=== PATIENT | female | born 1975 | race Caucasian/White ===

== ENCOUNTER → 2016-10-12 09:02 | Outpatient (CLI) | payer MEDICAID ==
[2012-06-03 16:57] VITALS: BMI 25.0
--- NOTE | ~2016-10-12 | EMG ---
PATIENT:SHANTE PACHECO DATE OF SERVICE: 10/12/16 MEDICAL RECORD: [id number] DATE OF : 77 LOCATION: [facility] ADMISSION DATE: REFERRING PHYSICIAN: CARMEN CUEVA DO INTERPRETING PHYSICIAN: JOSSELYN RM MD DATE OF SERVICE: 10/13/2016 Referred as an outpatient by Dr. Cueva. DATE OF EXAMINATION: 10/12/2016. ELECTROMYOGRAPHIC DATA: Electromyographic examination is limited to both upper extremities. In the right upper extremity, right median motor stimulation elicits a compound motor action potential with a distal latency of 2.6 milliseconds, peak amplitude of 7 millivolts, and calculated conduction velocity of 57 meters per second. Right ulnar motor stimulation elicits a compound motor action potential with a distal latency of 2.7 milliseconds, peak amplitude of 6 millivolts, and calculated conduction velocity of 71 meters per second. Right ulnar motor stimulation across the elbow fails to elicit evidence of conduction block at this level. Antidromic right median sensory stimulation elicits a response with a distal latency of 2.9 milliseconds, amplitude of 25 microvolts and calculated conduction velocity of 65 meters per second. Antidromic right ulnar sensory stimulation elicits a response with a distal latency of 3.2 milliseconds, amplitude of 20 microvolts and calculated conduction velocity of 70 meters per second. The right median F wave has a latency of 24 milliseconds. In the left upper extremity, left median motor stimulation elicits a compound motor action potential with a distal latency of 2.5 milliseconds, peak amplitude of 9 millivolts, and calculated conduction velocity of 57 meters per second. Left ulnar motor stimulation elicits a compound motor action potential with a distal latency of 2.8 milliseconds, peak amplitude of 6 millivolts, and calculated conduction velocity of 64 meters per second. Left ulnar motor stimulation across the elbow fails to elicit evidence of conduction block at this level. Antidromic left median sensory stimulation elicits a response with a distal latency of 2.9 milliseconds, amplitude of 25 microvolts and calculated conduction velocity of 62 meters per second. Antidromic left ulnar sensory stimulation elicits a response with a distal latency of 3.4 milliseconds, amplitude of 14 microvolts and calculated conduction velocity of 76 meters per second. The left median F wave has a latency of 24 milliseconds. Needle electrode examination is limited to both upper extremities as well. Muscles interrogated include the abductor pollicis brevis, first dorsal interosseous, abductor digiti minimi, pronator teres, biceps brachii, triceps and deltoid. There is no abnormality of insertional activity and no abnormal spontaneous activity is seen in all muscles interrogated. Motor unit potential morphology and the pattern of motor unit potential firing and recruitment is normal in all muscles sampled. INTERPRETATION: Electromyographic examination of both upper extremities is normal. There is no electrical evidence of a cervical radiculopathy or other lesion of the lower motor neuron in the upper extremities at this time. There is no evidence of active denervation. ELECTROMYGRAM/NERVE CONDUCTION [id number] SHANTE PACHECO TRANSINT:[id number] Voice Confirmation ID: [id number] DOCUMENT ID: [id number] JOSSELYN RM MD CC: [id number] DICTATION DATE: 10/13/1645 COMPLIANCE PARALEGAL: 10/14/16 0129 DEP CLI 10/12/16 [id number] [place] [address]
== END | disposition home or self-care (01) ==
LOC: D.CN 09:00
DX: R29.898 Other symptoms and signs involving the musculoskeletal system (principal)

== ENCOUNTER 2018-04-23 04:07 | Observation (INO) | payer MEDICAID ==
[~2018-04-23] VITALS: Ht 165.1 cm; Wt 82.6 kg
--- NOTE | ~2018-04-23 | HEMODYNAMI ---
PATIENT:SHANTE PACHECO MEDICAL RECORD: [id number] : 77 [id number] ADMISSION DATE: 04/23/18 Generatedon:04/23/201812:03 Patient name: SHANTE PACHECO Patient #: [id number] SSN: D OB: 1975 Date of study: 04/23/2018 Page: Of Hemodynamic Procedure Report Patient Data Patient Demographics Procedure consent was obtained First Name: SHANTE Gender: Female Last Name: JUNIOR : 1975 Middle Initial: D Age: 42 year(s) Patient #: [id number] Race: Unknown Additional ID: [id number] Contact details [address]: [address] [place] [address] State: [place] City: [place] Zip code: [address] Past Medical History Allergies Allergen Reaction Date Comments Reported Other allergy 04/23/2018 Sulfa, Tetanus Admission Admission Data Admission Date: 04/23/2018 Admission Time: 4:07 Admit Source: Emergency department Room #: D.2136 Lab Results Lab Result Date: 04/23/2018 Lab Result Time: 9:49 Biochemistry Name Units Result Min Max BUN mg/dl 7 --(*---)-- 7 18 Creatinine mg/dl 0.7 --(*---)-- 0.6 1.3 CBC Name Units Result Min Max Hematocrit % 34.5 *-(----)-- 42 54 Hemoglobin g/dl 11.5 *-(----)-- 13.5 17.5 Procedure Procedure Types Cath Procedure Diagnostic Procedure LHC LHC w/Coronaries Procedure Description Procedure Date Procedure Date: 04/23/2018 Procedure Start Time: 11:57 Procedure End Time: 12:03 Procedure Staff Name Function Pepito Salazar MD Performing Physician Jasvir Hardy RT Monitor Thalia Rubio RT Scrub Mallika Thayer RN Nurse Procedure Data Cath Procedure Fluoroscopy Diagnostic fluoroscopy Total fluoroscopy Time: 0.5 time: 0.5 min min Diagnostic fluoroscopy Total fluoroscopy dose: 173 dose: 173 mGy mGy Contrast Material Contrast Material Type Amount (ml) Isovue 300 24 Entry Location Entry Primary Successful Side Size Upsize Upsize Entry Closure Araya ccessful Closure Location (Fr) 1 (Fr) 2 (Fr) Remarks Device Remarks Radial Right 6 Fr Mechanical artery Short Compression Estimated blood loss: 5 ml Diagnostic catheters Device Type Used For End Catheter Placement DIAGNOSTIC [place] 110cm 5 Procedure Fr catheter ([id number]) Procedure Complications No complications Procedure Medications Medication Administration Route Dosage 0.9% NaCl I.V. 100 ml/hr Oxygen etCO2 Nasal cannula 2 l/min Lidocaine 2% added to field 20 Heparin Flush Bag added to field 2 bags (1000units/500ml NS) Radial Cocktail added to field 1 syringe (Verapomil 2mg/Nitro 400mcg/Heparin 1500units) Versed I.V. 2 mg Fentanyl I.V. 100 mcg Versed I.V. 2 mg Hemodynamics Rest Heart Rate: 50 (bpm) Snapshots Pre Cath Intra NCS Post Cath Vital Signs Time Heart Resp SPO2 etCO2 NIBP Rhythm Pain Sedation Rate (ipm) (%) (mmHg) (mmHg) Status Level (bpm) 11:35:48 67 19 100 26.9 123/70(94) NSR 0 (11) 10(A) , No pain 11:40:08 65 18 100 27.9 114/64(93) NSR 0 (11) 10(A) , No pain 11:44:24 63 14 98 26.7 106/54(80) NSR 0 (11) 10(A) , No pain 11:48:34 59 14 97 27.6 104/57(80) NSR 0 (11) 10(A) , No pain 11:52:46 61 14 97 22.2 102/51(77) NSR 0 (11) 10(A) , No pain 11:57:00 61 13 99 24 104/55(74) NSR 0 (11) 10(A) , No pain 12:01:12 80 16 92 28.9 95/62(81) NSR 0 (11) 10(A) , No pain Medications Time Medication Route Dose Verified Delivered Reason Notes E ffectiveness by by 11:38:38 0.9% NaCl I.V. 100 Pepito Mallika used for ml/hr Martin Thayer hearings reporter 11:38:45 Oxygen etCO2 2 l/min Pepito Mallika used for Nasal Martin Thayer procedure cannula RN 11:38:53 Lidocaine 2% added 20ml Pepito Beyer for local to vial Martin Salazar MD anesthetic field 11:38:58 Heparin Flush added 2 bags Pepito Beyer used for Bag to Martin Salazar MD procedure (1000units/500ml field NS) 11:39:05 Radial Cocktail added 1 Pepito Beyer used for (Verapomil to syringe Martin Salazar MD procedure 2mg/Nitro field 400mcg/Heparin 1500units) 11:58:29 Versed I.V. 2 mg Pepito Mallika for Martin Thayer sedation RN 11:58:35 Fentanyl I.V. 100 mcg Pepito Mallika for Martin Thayer sedation RN 12:02:31 Versed I.V. 2 mg Pepito Mallika for Martin Thayer sedation receiving tank operator Log Time Note 11:00:26 Mallika Thayer RN sent for patient. Start room use. 11:14:38 Informed consent obtained and on chart 11:14:42 Admit Source: Emergency department 11:14:57 Diagnostic Cath status Elective 11:14:58 Time tracking: Regular hours (M-F 7:00 - 5:00) 11:15:01 Plan of Care:Hemodynamics will remain stable., Cardiac rhythm will remain stable., Comfort level will be maintained., Respiratory function will remain adequate., Patient/ family verbilizes understanding of procedure., Procedure tolerated without complication., Recovers from procedure without complications.. 11:16:23 H&P Date Dictated: 04/23/2018 Within 30 days and on chart.. 11:16:57 Lab Result : BUN 7 mg/dl 11:16:57 Lab Result : Creatinine 0.7 mg/dl 11:16:57 Lab Result : Hemoglobin 11.5 g/dl 11:16:57 Lab Result : Hematocrit 34.5 % 11:16:59 Lab results completed and on chart. 11:26:33 Patient received from Med II to CCL 1 Alert and oriented. Tansferred to table in Supine position. 11:26:39 Warm blankets applied, and zari hugger turned on for patient comfort. 11:26:40 Correct patient and procedure confirmed by team. 11:26:41 ECG and BP/O2 sat monitors applied to patient. 11::41 Pre-procedure instructions explained to patient. 11::42 Pre-op teaching completed and patient verbalized understanding. 11:26:44 Patient NPO since Midnight. 11:34:18 Vital chart was started 11:38:38 0.9% NaCl 100 ml/hr I.V. was administered by Mallika Thayer RN; used for procedure; 11:38:45 Oxygen 2 l/min etCO2 Nasal cannula was administered by Mallika Thayer RN; used for procedure; 11:38:53 Lidocaine 2% 20ml vial added to field was administered by Pepito Salazar MD; for local anesthetic; 11:38:58 Heparin Flush Bag (1000units/500ml NS) 2 bags added to field was administered by Pepito Salazar MD; used for procedure; 11:39:05 Radial Cocktail (Verapomil 2mg/Nitro 400mcg/Heparin 1500units) 1 syringe added to field was administered by Pepito Salazar MD; used for procedure; 11:39:07 Baseline sample Acquired. 11:39:10 Rhythm: sinus rhythm 11:39:12 Full Disclosure recording started 11:39:35 Patient allergic to Other allergySulfa, Tetanus 11:39:36 Is the patient allergic to Iodine/contrast media? No. 11:39:37 Is patient on blood thinner?Yes 11:39:39 ACC The patient was administered the following blood thiners within the last 24 hours: ACCPlavix 11:39:41 Patient diabetic? No. 11:39:44 Previous problem with sedation/anesthesia? No ? 11:39:45 Snore? Yes 11:39:46 Sleep apnea? No 11:39:47 Deviated septum? No 11:39:48 Opens mouth fully? Yes 11:39:48 Sticks out tongue? Yes 11:39:55 Airway obstruction? Yes COPD\Asthma 11:39:57 Dentures? No ? 11:40:00 Modified Dionte's test Ulnar < 7 seconds 11:40:01 Patient pain scale 0/10 ?. 11:40:06 IV patent on arrival in left forearm with 0.9% NaCl at [facility]. 11:40:10 Right Radial & Right Groin area was prepped with chlora-prep and draped in sterile fashion 11:40:11 Alarms reviewed by R. N. 11:40:11 Sharps counted by scrub and verified by R.N. 11:40:14 Use device set Radial Dx or PCI 11:40:15 ACIST Syringe (98256) opened to sterile field. 11:40:15 Medline Cath Pack ([id number]) opened to sterile field. 11:40:16 Bag Decanter (2002S) opened to sterile field. 11:40:17 ACIST Hand Control (54905) opened to sterile field. 11:40:17 ACIST Manifold (88377) opened to sterile field. 11:40:18 Tegaderm 4 x 4 (1626W) opened to sterile field. 11:40:18 MBrace Wrist Support ([id number]) opened to sterile field. 11:40:20 DIAGNOSTIC WIRE .035 260cm J wire (854091) opened to sterile field. 11:40:27 SHEATH 6FR Slender ([id number]) opened to sterile field. 11:55:58 Physician arrived 11:55:58 --------ALL STOP TIME OUT------ 11:55:59 Final Timeout: patient, procedure, and site verified with staff and physician. All members of the team are in agreement. 11:57:11 Right Radial & Right Groin site verified by team. 11:57:14 Physical assessment completed. ASA score P 2 - A patient with mild systemic disease as per Pepito Salazar MD. 11:57:19 Sedation plan: IV Moderate Sedation Medication:Versed, Fentanyl 11:57:26 Procedure started. 11:57:30 Local anesthetic to right radial artery with Lidocaine 2% by Pepito Salazar MD.INITIAL ACCESS ONLY 11:58:29 Versed 2 mg I.V. was administered by Mallika Thayer RN; for sedation; 11:58:35 Fentanyl 100 mcg I.V. was administered by Mallika Thayer RN; for sedation; 11:58:48 A 6 Fr Short sheath was inserted into the Right Radial artery 11:59:08 Zero performed for pressure channel P1 11:59:33 TR BAND Standard ([id number]) opened to sterile field. 11:59:38 A DIAGNOSTIC [place] 110cm 5 Fr catheter (538019) was advanced over the wire and used for Procedure. 11:59:50 LV gram done using MAZA 11:59:52 Injector settings: Ml/sec: 5, Volume: 15, 12:00:09 EF : 60 % 12:00:11 LV hemodynamics recorded. 12:00:19 LCA angiography performed. 12:00:50 RCA angiography performed. 12:00:51 Catheter removed. 12:00:57 Sheath removed intact; hemostasis achieved with Mechanical Compression to the Right Radial artery. 12:01:03 Procedure ended.(Physican Out) 12:02:06 Fluoroscopy time 00.50 minutes. 12:02:10 Flurop Dose total: 173 12::10 Fluoroscopy dose: 173 mGy 12:02:14 Contrast amount:Isovue 300 24ml. 12:02:15 Sharps counted by scrub and verified by R.N. 12:02:18 TR band inflated with 12cc of air. 12:02:19 Insertion/operative site no bleeding no hematoma. 12:02:20 Post Procedure Pulses reassessed and unchanged 12:02:22 Post-procedure physical assessment completed. ASA score P 2 - A patient with mild systemic disease as per Pepito Salazar MD. 12:02:24 Post procedure rhythm: unchanged. 12:02:26 Estimated blood loss: 5 ml 12:02:28 Post procedure instruction explained to patient.Patient verbalizes understanding. 12:02:28 Patient needs reinforcement of post procedure teaching. 12:02:31 Versed 2 mg I.V. was administered by Mallika Thayer RN; for sedation; 12:02:49 Procedure and supply charges have been captured, reviewed, submitted and are correct. 12:02:51 Procedure Complication : No complications 12:02:52 Vital chart was stopped 12:02:53 See physician's report for complete and final results. 12:02:54 Report given to PCU. 12:02:57 Patient transfered to PCU with Stretcher. 12:03:02 Procedure ended. 12:03:02 Full Disclosure recording stopped 12:03:05 End room use (Document Last) Device Usage Item Name Manufacture Quantity Catalog Hospital Part Current Minima l Lot# / Number Charge Number Stock Stock Serial# Code ACIST Acist 1 76465 418898 694746 523986 20 Syringe ActionBase (63390) [employer] Inc Medline Cath Medline 1 [id number] 436760 60649 295381 5 Pack ([id number]) Bag Decanter Microtek 1 2001S 065330 64473 418427 5 (2001S) Medical Inc. ACIST Hand Acist 1 04336 626556 139722 277107 5 Control Medical (32103) Systems Inc ACIST Acist 1 66752 242236 606870 273721 5 Manifold Medical (04696) Systems Inc Tegaderm 4 x 3M 1 1626W 469480 760359 809511 5 4 (1626W) MBrace Wrist Advanced 1 140-0250-00 237610 04053 665644 5 Support Vascular ([id number]) Dynamics DIAGNOSTIC St Abdulkadir 1 993464 663536 391266 432860 30 WIRE .035 260cm J wire (248513) SHEATH 6FR Terumo 1 [id number] 056701 381491 345616 40 Slender ([id number]) TR BAND Terumo 1 [id number] 851843 258481 690313 40 Standard ([id number]) DIAGNOSTIC Terumo 1 40-2743 803037 443158 396008 5 [place] 110cm 5 Fr catheter (531872) Signature Audit Williamson Stage Time Signature Unsigned Intra-Procedure 04/23/2018 Jasvir Hardy 12:03:42 PM RT(R) Signatures Monitor : Jasvir Hardy RT Signature : Date : Time : [id number] [place] [address]
--- NOTE | ~2018-04-23 | OP ---
PATIENT NAME: SHANTE PACHECO MEDICAL RECORD: [id number] :77 LOCATION:D.M2 D.2136 ADMISSION DATE:04/23/18 SURGEON: HOOD CORTEZ MD DATE OF OPERATION: 04/23/2018 PROCEDURES: 1. Left heart catheterization. 2. Selective coronary angiography. 3. Left ventriculogram. INDICATION: Chest pain. PROCEDURE IN DETAIL: After informed consent was obtained with detailed description of risks and benefits as well as alternative therapies, the patient elected to proceed with angiogram and heart catheterization. The right radial area was prepped and draped in normal sterile fashion. Right radial artery was cannulated via modified Seldinger technique with placement of 6-Wolof sheath. All catheters were exchanged through this sheath. FINDINGS: The left ventriculogram performed in standard 30-degree MAZA view reveals good cardiac wall motion throughout all segments. Overall ejection fraction estimated at 60%. SELECTIVE CORONARY ANGIOGRAPHY: Left main, left anterior descending, left circumflex, and right coronary artery are smooth-walled vessels with no angiographic evidence of coronary artery disease. OVERALL IMPRESSION: 1. No angiographic evidence of coronary artery disease. 2. Normal left heart pressures. 3. Normal left ventricular systolic function. Chest pain is noncardiac in etiology. TRANSINT:[id number] Voice Confirmation ID: [id number] DOCUMENT ID: [id number] HOOD CORTEZ MD at 1235 CC: [id number] DICTATION DATE: 04/23/18 1206 NITRO MAN: 04/23/18 1218 ADM IN [address] [place] [address]
--- NOTE | ~2018-04-23 | EC ---
PATIENT:SHANTE PACHECO DATE OF SERVICE: 04/23/18 SEX: F MEDICAL RECORD: [id number] DATE OF : [birth year] LOCATION:[place] [address] AGE OF PATIENT: 42 ADMISSION DATE: 04/23/18 REFERRING PHYSICIAN: INTERPRETING PHYSICIAN: HOOD SALAZAR MD ECHOCARDIOGRAM REPORT ECHO CHARGES 4 ECHO COMPLETE Date: 04/23/18 CLINICAL DIAGNOSIS: BRADYCARDIA, CP ECHOCARDIOGRAPHIC MEASUREMENTS (adult normal given) AC root (d.<3.7cm) 2.9 cm LV Septum d (<1.2 cm> 0.8 cm Valve Excursion 1.7 cm LV Septum (systole) 1.1 cm Left Atria (s.<4.0cm> 3.7 cm LVPW d(<1.2cm) 0.7 cm RV (d.<2.3cm) 2.8 cm LVPW (sytole) 0.8 cm LV diastole(<5.6CM) 4.8 cm MV E-F(>70mm/sec) cm LV systole 3.4 cm LVOT Diameter 1.8 cm MV exc.(>10mm) cm Est.ejection fraction (50-75%) % DOPPLER: LVIT cm/sec A 39 cm/sec E 76 cm/sec LA cm/sec RVSP 15.5 mmHg LVOT 90 cm/sec AOP1/2T m/s Asc. Ao 113 cm/sec RVOT 44 cm/sec RA cm/sec PA 68 cm/sec AV Gradient Peak 5.1 mmHg AV Mean 3.0 mmHg AV Area 2.1 cm MV Gradient Peak 4.1 mmHg MV Mean 1.6 mmHg MV Area cm COMMENTS: Internet Marketing Coordinator: John LARA Returned Goods Receiving Clerk: 1 Dr. Salazar TAPE# PACS Pericardial Effusion N DATE OF SERVICE: 04/23/2018 PROCEDURE: Echocardiogram FINDINGS: 1. Left ventricular chamber size is within normal limits. Left ventricular systolic function is normal. Overall ejection fraction estimated at 55%. 2. Left atrium is within normal limits. Right atrium and right ventricle chamber sizes are mildly dilated. 3. Valvular structure have normal structure and motion. ECHOCARDIOGRAM REPORT [id number] SHANTE PACHECO 4. Doppler interrogation reveals only trace tricuspid regurgitation, no other valvular insufficiency or stenosis. Pulmonary systolic pressure is normal, estimated at 15 mmHg. 5. No evidence of pericardial effusion or left ventricular thrombus. TRANSINT:[id number] Voice Confirmation ID: [id number] DOCUMENT ID: [id number] HOOD SALAZAR MD at 1816 CC: [id number] DICTATION DATE: 04/23/18 1240 PUBLIC RELATIONS: 04/23/18 1302 DIS IN 04/23/18 [facility] [address] [id number]
[2018-04-23] MEDS ORDERED: FOLIC ACID1 MG PO (04:15)
[2018-04-23] MEDS ORDERED: LOZOL 2.5 MG T2.5 MG PO (04:16)
[2018-04-23] MEDS ORDERED: ULTRAM50 MG PO (04:18)
[2018-04-23] MEDS ORDERED: PRAVASTATIN SOD10 MG PO (04:18)
[2018-04-23] MEDS ORDERED: POTASSIUM CL ER 10 M (04:19)
[2018-04-23] MEDS ORDERED: BYSTOLIC5 MG PO (04:39)
[2018-04-23] MEDS ORDERED: DULERA 100 MCG8.8 GM INH (04:40)
[2018-04-23] MEDS ORDERED: GABAPENTIN100 MG PO (04:41)
[2018-04-23] MEDS ORDERED: NITROSTAT0.4 MG SL (04:42)
[2018-04-23] MEDS ORDERED: PLAQUENIL 200200 MG PO (04:44)
[2018-04-23] MEDS ORDERED: ZANAFLEX4 MG PO (04:48)
[2018-04-23 05:20] VITALS: Ht 165.1 cm; Wt 82.6 kg
[2018-04-23 05:58] VITALS: BP 105/47
[2018-04-23 08:33] VITALS: BP 134/64
[2018-04-23 10:15] LABS: BASOPHILS 0.3 % (0-2); EOSINOPHILS 2.6 % (0-7); HEMATOCRIT 34.5 % (36.0-48.0); HEMOGLOBIN 11.5 g/dL (12-16); IMMATURE GRANULOCYTES 0.3 % (0-5); LYMPHOCYTES 28.3 % (15-50); MCH 29.3 pg (26.0-34.0); MCHC 33.3 g/dL (31.0-37.0); MCV 87.8 fL (80.0-100.0); MEAN PLATELET VOLUME 10.6 fL (7.4-10.4); MONOCYTES 5.6 % (2-11); NEUTROPHILS 62.9 % (40-80); PLATELET COUNT 245 10x3/uL (130-400); RBC 3.93 10x6/uL (4.00-5.40); RDW 13.7 % (11.5-14.5); WBC 6.1 10x3/uL (4.8-10.8)
[2018-04-23 10:29] LABS: CALC OSMOLALITY 284 mosm/kg (275-300); CALCIUM 8.6 mg/dL (8.5-10.1); CARBON DIOXIDE 25.4 mmol/L (21.0-32.0); CHLORIDE - SERUM 109 mmol/L (98-107); CREATININE - SERUM 0.7 mg/dL (0.6-1.3); GLUCOSE 104 mg/dL (74-106); POTASSIUM - SERUM 3.4 mmol/L (3.5-5.1); SODIUM 144 mmol/L (136-145); UREA NITROGEN 7 mg/dL (7-18); eGFR NON AFRICAN AMERICAN > 90 mL/min (90-120)
[2018-04-23 11:12] VITALS: BP 129/71
[2018-04-23] MEDS ORDERED: NORCO 10-325 TA1 TAB PO (13:03)
== END 2018-04-23 14:53 | disposition home or self-care (01) ==
LOC: D.M2 04:07 → OBSVTIME 04:07 → D.M2 04:07 → D.CLR 13:01
PROVIDERS: Internal Medicine Interventional Cardiology
DX: R07.89 Other chest pain (principal); F31.30 Bipolar disorder, current episode depressed, mild or moderate severity, unspecified; Z87.891 Personal history of nicotine dependence

== ENCOUNTER → 2018-11-25 13:01 | Outpatient (CLI) | payer MEDICAID ==
[~2018-11-25 13:01] MED LIST: BYSTOLIC5 MG PO; DULERA 100 MCG8.8 GM INH; FOLIC ACID1 MG PO; GABAPENTIN100 MG PO; LOZOL 2.5 MG T2.5 MG PO; NITROSTAT0.4 MG SL; NORCO 10-325 TA1 TAB PO; PLAQUENIL 200200 MG PO; POTASSIUM CL ER 10 M; PRAVASTATIN SOD10 MG PO; ULTRAM50 MG PO; ZANAFLEX4 MG PO
--- NOTE | 2018-11-27 14:16 | EC ---
PATIENT:SHANTE PACHECO DATE OF SERVICE: 11/25/18 SEX: F MEDICAL RECORD: [id number] DATE OF : [birth year] LOCATION:[facility] AGE OF PATIENT: 43 ADMISSION DATE: 11/25/18 REFERRING PHYSICIAN: INTERPRETING PHYSICIAN: MINE MINOR MD ECHOCARDIOGRAM REPORT ECHO CHARGES 4 ECHO COMPLETE Date: 11/25/18 CLINICAL DIAGNOSIS: SYNCOPE ECHOCARDIOGRAPHIC MEASUREMENTS (adult normal given) AC root (d.<3.7cm) 2.8 cm LV Septum d (<1.2 cm> 1.4 cm Valve Excursion 1.8 cm LV Septum (systole) 1.5 cm Left Atria (s.<4.0cm> 3.3 cm LVPW d(<1.2cm) 1.3 cm RV (d.<2.3cm) 3.9 cm LVPW (sytole) 1.5 cm LV diastole(<5.6CM) 4.6 cm MV E-F(>70mm/sec) cm LV systole 3.2 cm LVOT Diameter 2.1 cm MV exc.(>10mm) 1.2 cm Est.ejection fraction (50-75%) % DOPPLER: LVIT cm/sec A 64.0 cm/sec E 89.0 cm/sec LA cm/sec RVSP 25 mmHg LVOT 102 cm/sec AOP1/2T m/s Asc. Ao 127 cm/sec RVOT 64 cm/sec RA cm/sec PA 95 cm/sec AV Gradient Peak 6.46 mmHg AV Mean 2.94 mmHg AV Area 2.9 cm MV Gradient Peak 3.20 mmHg MV Mean 1.38 mmHg MV Area cm COMMENTS: Brand Designer: 2 CHRISTINA LEWIS Key Cutter: 3 Dr. Angeles TAPE# PACS Pericardial Effusion N DATE OF SERVICE: Adequate 2D, color flow, spectral Doppler, and M-Mode. Borderline LVH. LV internal dimensions are normal. Wall motion is normal. EF is greater than or equal to 55%. Aortic valve is tricuspid. No evidence of stenosis on Doppler interrogation. Left atrium is normal. Mitral valve shows no prolapse. Trace MR. Right-sided chamber is grossly normal. Trace TR. TRANSINT:[id number] Voice Confirmation ID: [id number] DOCUMENT ID: [id number] ECHOCARDIOGRAM REPORT [id number] SHANTE PACHECO MINE MINOR MD at 1416 CC: [id number] DICTATION DATE: 11/25/18 1450 HEAD GROWER: 11/25/18 1504 DEP CLI 11/25/18 [id number] [place] [address]
== END | disposition home or self-care (01) ==
LOC: D.HCCARDIO 13:01
PROVIDERS: ATTEND Internal Medicine Interventional Cardiology
DX: R55 Syncope and collapse (principal)

== ENCOUNTER → 2019-01-02 12:50 | Outpatient (CLI) | payer MEDICAID | END | disposition home or self-care (01) | LOC: D.US 12:50 | PROVIDERS: ATTEND Internal Medicine Interventional Cardiology | DX: R55 Syncope and collapse (principal) ==

== ENCOUNTER 2019-01-31 09:22 | Outpatient (CLI) | payer MEDICAID ==
[~2019-01-31] VITALS: Ht 165.1 cm; Wt 80.9 kg
[2019-01-31] MEDS ORDERED: ZOFRAN4 MG PO (09:46)
[2019-01-31] MEDS ORDERED: HYDROXYCHLOROQUINE (09:49)
[2019-01-31] MEDS ORDERED: METHOTREXATE2.5 MG PO (09:50)
[2019-01-31] MEDS ORDERED: BENTYL10 MG PO (09:51)
[2019-01-31] MEDS ORDERED: DULERA 100 MCG8.8 GM INH (09:51)
[2019-01-31 10:02] VITALS: BP 133/84; Ht 165.1 cm; Wt 80.9 kg
--- NOTE | 2019-01-31 10:16 | NUR ---
COLD ROLLING SUPERVISOR NOTIFIED OF POSITIVE SUICIDE RISK SCREENING.
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
[2019-01-31 11:36] LABS: BASOPHILS 0.5 % (0-2); EOSINOPHILS 2.6 % (0-7); HEMATOCRIT 40.4 % (36.0-48.0); HEMOGLOBIN 13.7 g/dL (12-16); IMMATURE GRANULOCYTES 0.9 % (0-5); LYMPHOCYTES 22.9 % (15-50); MCH 29.5 pg (26.0-34.0); MCHC 33.9 g/dL (31.0-37.0); MCV 87.1 fL (80.0-100.0); MEAN PLATELET VOLUME 10.1 fL (7.4-10.4); MONOCYTES 4.6 % (2-11); NEUTROPHILS 68.5 % (40-80); RBC 4.64 10x6/uL (4.00-5.40); RDW 12.7 % (11.5-14.5); WBC 9.7 10x3/uL (4.8-10.8)
[2019-01-31 11:40] LABS: PLATELET COUNT 297 10x3/uL (130-400)
[2019-01-31 11:45] LABS: CALC OSMOLALITY 283 mosm/kg (275-300); CALCIUM 9.7 mg/dL (8.5-10.1); CARBON DIOXIDE 25.3 mmol/L (21.0-32.0); CHLORIDE - SERUM 104 mmol/L (98-107); CREATININE - SERUM 0.8 mg/dL (0.6-1.3); GLUCOSE 109 mg/dL (74-106); POTASSIUM - SERUM 3.9 mmol/L (3.5-5.1); SODIUM 141 mmol/L (136-145); UREA NITROGEN 18 mg/dL (7-18); eGFR NON AFRICAN AMERICAN 83 mL/min (90-120)
--- NOTE | 2019-01-31 12:11 | NUR ---
1130 MENTAL HEALTH CONSULT COMPLETE. PT SITTING UP IN BED, VISITING WITH FRIEND AT BEDSIDE. 1155 DR CORTEZ HAS ROUNDED ON PT, EXPLAINED TO PT THAT LINQ MONITOR DID NOT ARRIVE TO HOSPITAL TODAY AND PROCEDURE FOR TODAY IS CANCELLED, OFFICE TO CALL PT TO RESCHEDULE. 1205 IV HAS BEEN DC'D WITH CATH INTACT, DC INSTRUCTIONS REVIEWED WITH PT WHO VERBALIZES UNDERSTANDING. PT AMBULTORY UPON DC. SANDWICH AND PO FLUIDS OFFERED AND PT DECLINES, STATES IS GOING OUT TO LUNCH WITH HER FRIEND.
== END 2019-01-31 12:05 | disposition home or self-care (01) ==
LOC: D.CATH 09:22
PROVIDERS: ATTEND Internal Medicine Interventional Cardiology
DX: R55 Syncope and collapse (principal); Z53.9 Procedure and treatment not carried out, unspecified reason; Z01.812 Encounter for preprocedural laboratory examination

== ENCOUNTER 2019-02-10 08:21 | Outpatient (CLI) | payer MEDICAID ==
[~2019-02-10] VITALS: Ht 165.1 cm; Wt 90.0 kg
--- NOTE | ~2019-02-10 | HEMODYNAMI ---
PATIENT:SHANTE PACHECO MEDICAL RECORD: [id number] : 77 LOCATION:[facility] ADMISSION DATE: 02/10/19 Generatedon:02/10/20199:54 Patient name: SHANTE PACHECO Patient #: [id number] SSN: D OB: 1975 Date of study: 02/10/2019 Page: Of Hemodynamic Procedure Report Patient Data Patient Demographics Procedure consent was obtained First Name: SHANTE Gender: Female Last Name: JUNIOR : 1975 Middle Initial: D Age: 43 year(s) Patient #: [id number] Race: Unknown Additional ID: [id number] Contact details [address]: [address] [place] [address] State: [place] City: [place] Zip code: [address] Past Medical History Allergies Allergen Reaction Date Comments Reported Other allergy 04/23/2018 Sulfa, Tetanus Admission Admission Data Admission Date: 02/10/2019 Admission Time: 8:21 Procedure Procedure Types Cath Procedure Diagnostic Procedure PPM/ICD Loop Recorder Implant Sedation Charges Moderate Sedation up to 15 minutes Procedure Description Procedure Date Procedure Date: 02/10/2019 Procedure Start Time: 9:43 Procedure End Time: 9:52 Procedure Staff Name Function Pepito Salazar MD Performing Physician Ivan Andersen RT Monitor John Quan RN Nurse Ivan Andersen RT Scrub Procedure Data Cath Procedure Fluoroscopy Diagnostic fluoroscopy Total fluoroscopy Time: 0 time: 0 min min Diagnostic fluoroscopy Total fluoroscopy dose: 0 dose: 0 mGy mGy Estimated blood loss: 0 ml Procedure Complications No complications Procedure Medications Medication Administration Route Dosage 0.9% NaCl I.V. 100 ml/hr Oxygen etCO2 Nasal cannula 2 l/min Lidocaine 2% added to field 20 Versed I.V. 2 mg Fentanyl I.V. 100 mcg Versed I.V. 2 mg Hemodynamics Rest Heart Rate: 70 (bpm) Snapshots Pre Cath Intra NCS Post Cath Vital Signs Time Heart Resp SPO2 etCO2 NIBP (mmHg) Rhythm Pain Sedation Rate (ipm) (%) (mmHg) Status Level (bpm) 9:24:51 134 22 98 0 117/70(85) NSR 0 (11) 10(A) , No pain 9:29:01 65 16 99 14.2 107/66(88) NSR 0 (11) 10(A) , No pain 9:33:05 68 12 94 17.2 119/71(85) NSR 0 (11) 10(A) , No pain 9:37:09 79 19 95 20.2 133/86(103) NSR 0 (11) 10(A) , No pain 9:41:21 66 13 95 3.7 118/71(83) NSR 0 (11) 10(A) , No pain 9:45:26 68 12 94 17.2 121/76(95) NSR 0 (11) 9(A) , No pain 9:49:32 72 13 94 28.5 119/77(98) NSR 0 (11) 9(A) , No pain Medications Time Medication Route Dose Verified Delivered Reason Notes Effective ness by by 9:27:47 0.9% NaCl I.V. 100 John John Per ml/hr Kadeem Quan physician RN RN 9:27:59 Oxygen etCO2 2 John John for low 02 Nasal l/min Lorigan Lorigan sats cannula RN RN 9:28:12 Lidocaine added 20ml John John for local 2% to vial Lorigan Lorigan anesthetic field RN RN 9:41:33 Versed I.V. 2 mg John John for Lorigan Lorigan sedation RN RN 9:41:41 Fentanyl I.V. 100 John John for mcg Lorigan Lorigan sedation RN RN 9:42:42 Versed I.V. 2 mg John John for Lorigan Lorigan sedation RN poker manager Log Time Note 9:10:15 Ivan Andersen RT(R) sent for patient. Start room use. 9:23:12 Procedure Status Elective Heart Cath (OP). 9:23:25 Time tracking: Regular hours (M-F 7:00 - 5:00) 9:23:29 Plan of Care:Hemodynamics will remain stable., Cardiac rhythm will remain stable., Comfort level will be maintained., Respiratory function will remain adequate., Patient/ family verbilizes understanding of procedure., Procedure tolerated without complication., Recovers from procedure without complications.. 9:23:34 Patient arrived from Pre/Post Procedure Room to CCL 2. Patient remains on bed/stretcher for procedure. 9:23:37 Signed procedure consent form obtained from patient. 9:23:38 Warm blankets applied, and zari hugger turned on for patient comfort. 9:23:39 Correct patient and procedure confirmed by team. 9:23:39 ECG and BP/O2 sat monitors applied to patient. 9:23:45 Vital chart was started 9:27:47 0.9% NaCl 100 ml/hr I.V. was administered by John Quan RN; Per physician; 9:27:59 Oxygen 2 l/min etCO2 Nasal cannula was administered by John Quan RN; for low 02 sats; 9:28:12 Lidocaine 2% 20ml vial added to field was administered by John Quan RN; for local anesthetic; 9:30:06 Baseline sample Acquired. 9:30:10 Rhythm: sinus rhythm 9:30:12 Full Disclosure recording started 9:30:58 H&P Date Dictated: 02/10/2019 Within 30 days and on chart.. 9:30:59 Pre-procedure instructions explained to patient. 9:30:59 Pre-op teaching completed and patient verbalized understanding. 9:31:01 Family in patients room. 9:31:02 Patient NPO since Midnight. 9:31:03 Is the patient allergic to Iodine/contrast media? No. 9:31:05 Is patient on blood thinner?No 9:31:07 Patient diabetic? No. 9:31:14 Previous problem with sedation/anesthesia? No ? 9:31:17 Snore? Yes 9:31:17 Sleep apnea? Yes 9:31:18 Deviated septum? No 9:31:19 Opens mouth fully? Yes 9:31:20 Sticks out tongue? Yes 9:31:23 Airway obstruction? No ? 9:31:25 Dentures? No ? 9:31:36 IV patent on arrival in left forearm with 0.9% NaCl at [facility]. 9:31:39 Lab results completed and on chart. 9:31:48 Left chest area was prepped with chlora-prep and draped in sterile fashion 9:31:49 Alarms reviewed by R. N. 9:31:53 Sharps counted by scrub and verified by R.N. 9:32:49 Physician paged 9:39:59 --------ALL STOP TIME OUT------ 9:39:59 Final Timeout: patient, procedure, and site verified with staff and physician. All members of the team are in agreement. 9:40:02 Left chest site verified by team. 9:40:13 Fire Safety Assessment: A--An alcohol-based skin anteseptic being used preoperatively., B--The operative or invasive procedure is being performed above the xiphoid process or in the oropharynx., C--Open oxygen or nitrous oxide is being used. 9:40:17 Physical assessment completed. ASA score P 2 - A patient with mild systemic disease as per Pepito Salazar MD. 9:40:22 Sedation plan: IV Moderate Sedation Medication:Versed, Fentanyl 9:41:33 Versed 2 mg I.V. was administered by John Quan RN; for sedation; 9:41:41 Fentanyl 100 mcg I.V. was administered by John Quan RN; for sedation; 9:42:42 Versed 2 mg I.V. was administered by John Quan RN; for sedation; 9:42:47 Medtronic Linq Loop Recorder opened to sterile field. 9:42:51 Procedure started. 9:43:04 Local anesthetic to Chest area with Lidocaine 2% by Pepito Salazar MD.INITIAL ACCESS ONLY 9:43:25 Incision made to mid chest. 9:44:10 Linq was inserted subcutaneously to mid chest. 9:49:04 Incision closed with Dermabond, Mastisol and Steri strips. 9:49:12 Dermabond Pen opened to sterile field. 9:50:03 Procedure ended.(Physican Out) 9:50:41 Fluoroscopy time 00.00 minutes. 9:50:42 Fluoroscopy dose: 0 mGy 9:50:42 Flurop Dose total: 0 9:50:46 Dose Area Product 0 mGy/cm. 9:50:50 Sharps counted by scrub and verified by R.N. 9:50:54 Insertion/operative site no bleeding no hematoma. 9:51:22 Mid Chest incision was dressed with Mepilex dressing. 9:51:31 Post-procedure physical assessment completed. ASA score P 2 - A patient with mild systemic disease as per Pepito Salazar MD. 9:51:34 Post procedure rhythm: unchanged. 9:51:38 Estimated blood loss: 0 ml 9:51:40 Post procedure instruction explained to patient.Patient verbalizes understanding. 9:51:40 Patient needs reinforcement of post procedure teaching. 9:51:51 Procedure type changed to Cath procedure, Diagnostic procedure, PPM/ICD, Loop Recorder Implant, Sedation Charges, Moderate Sedation up to 15 minutes 9:51:53 Procedure and supply charges have been captured, reviewed, submitted and are correct. 9:51:55 Procedure Complication : No complications 9:52:18 Vital chart was stopped 9:52:18 See physician's report for complete and final results. 9:52:19 Report given to Pre/Post Procedure Room. 9:52:25 Patient transfered to Pre/Post Procedure Room with Stretcher. 9:52:28 Procedure ended. 9:52:28 Full Disclosure recording stopped 9:52:35 End room use (Document Last) Device Usage Item Name Manufacture Quantity Catalog Hospital Part Current Minimal Lot# / Number Charge Number Stock Stock Serial# Code Medtronic Medtronic 1 [id number] [id number] Linq Loop EXP Recorder 7-14-2 0 Dermabond Ethicon 1 [id number] [id number] 5 Pen Signature Audit [place] Stage Time Signature Unsigned Intra-Procedure 02/10/2019 Ivan Andersen 9:54:30 AM RT(R) Signatures Performing Physician : Signature : Pepito Salazar MD Date : Time : Monitor : Ivan Andersen RT Signature : Date : Time : Nurse : John Quan Signature : RN Date : Time : [id number] [place] [address]
[~2019-02-10 08:21] MED LIST changes: +BENTYL10 MG PO; +HYDROXYCHLOROQUINE; +METHOTREXATE2.5 MG PO; +ZOFRAN4 MG PO
[2019-02-10] MEDS ORDERED: Proair INH (08:39)
[2019-02-10] MEDS ORDERED: VITAMIN D5000 UNIT PO (08:40)
[2019-02-10] MEDS ORDERED: ZANAFLEX4 MG PO (08:40)
[2019-02-10 08:50] VITALS: BP 117/67; Ht 165.1 cm; Wt 90.0 kg
--- NOTE | 2019-02-10 10:00 | NUR ---
PT RECEIVED VIA STRETCHER FROM AUTOMOTIVE PARTS ADVISOR POST LINQ LOOP RECORDER PLACEMENT. PT AWAKE BUT DROWSY, SHE DENIES ANY PAIN OR DISCOMFORT. IV PATENT INFUSING VIA ORDERS TO L AC. DERMADERM DRESSING TO L UPPER CHEST, CDI. HR NSR RATE 72, BP 110/69, O2 SAT 96 ON ROOM AIR. FRIEND AT BEDSIDE, CALL LIGHT IN REACH
--- NOTE | 2019-02-10 10:15 | NUR ---
PT RESTING COMFORTABLY, CALL LIGHT IN REACH. HR 77, BP 110/69. DERMABOND DRESSING REMAINS CDI, NO BLEEDING NOTED.
--- NOTE | 2019-02-10 10:45 | NUR ---
HOB ELEVATED, SANDWICH TRAY SERVED. PT AWAKE, ALERT, FRIEND AT BEDSIDE, CALL LIGHT IN REACH. PT DENIES PAIN OR DISCOMFORT
--- NOTE | 2019-02-10 11:15 | NUR ---
PT STILL DOING WELL, VSS. DENIES PAIN OR DISCOMFORT. SMALL AMT OF BLOOD ON DRESSING NOTED. PT TOLERATED LUNCH W/O NAUSEA. CALL LIGHT IN REACH, WAITING ON [employer] REP TO GET LINQ DEVICE PROGRAMMED BEFORE DISCHARGE.
--- NOTE | 2019-02-10 11:25 | NUR ---
WILL FROM [employer] AT BEDSIDE PROGRAMMING LINQ DEVICE. EDUCATED PT ON THE USE.
--- NOTE | 2019-02-10 11:45 | NUR ---
DISCHARGE INSTRUCTIONS REVIEWED W PT AND FRIEND, SHE VERBALIZED UNDERSTANDING. IV REMOVED W CATH INTACT, MONITORS REMOVED. PT UP TO DRESS FOR DISCHARGE.
--- NOTE | 2019-02-10 11:55 | NUR ---
PT TO BR VIA WC, VOIDING W/O DIFFICULITY. PT THEN DISCHARGED TO FRIEND WAITING IN PRIVATE VEHICLE WITH ALL BELONGINGS.
--- NOTE | 2019-02-11 12:04 | OP ---
PATIENT NAME: SHANTE PACHECO MEDICAL RECORD: [id number] :77 LOCATION:[facility] ADMISSION DATE: SURGEON: HOOD CORTEZ MD DATE OF OPERATION: 02/10/2019 PROCEDURE: LINQ insertion. INDICATION: Recurrent syncope. DESCRIPTION OF PROCEDURE: After informed consent was obtained and after a detailed description of the risks, benefits as well as alternative therapies, the patient elected to proceed with LINQ insertion. IV conscious sedation was per nursing. Continuous heart rate, O2 saturation, blood pressure monitoring all undertaken, all of which remained stable. She has the LINQ device placed uneventfully. TRANSINT:[id number] Voice Confirmation ID: [id number] DOCUMENT ID: [id number] HOOD CORTEZ MD at 1204 CC: [id number] DICTATION DATE: 02/10/19 1002 BOSTON CUTTER: 02/10/19 1042 DEP CLI 02/10/19 [id number] [place] [address]
== END 2019-02-10 12:00 | disposition home or self-care (01) ==
LOC: D.CATH 08:21
PROVIDERS: ATTEND Internal Medicine Interventional Cardiology
DX: R55 Syncope and collapse (principal); Z01.812 Encounter for preprocedural laboratory examination

== ENCOUNTER 2020-11-18 06:00 | Day surgery (SDC) | payer MEDICAID ==
[2020-11-17 12:59] LABS: HEMATOCRIT 42.5 % (36.0-48.0); HEMOGLOBIN 14.3 g/dL (12-16); LYMPHOCYTES 18.3 % (15-50); MCH 28.6 pg (26.0-34.0); MCHC 33.6 g/dL (31.0-37.0); MCV 85.2 fL (80.0-100.0); MEAN PLATELET VOLUME 8.1 fL (7.4-10.4); MONOCYTES 5.9 % (2-11); NEUTROPHILS 71.8 % (40-80); PLATELET COUNT 270 10x3/uL (130-400); RBC 4.99 10x6/uL (4.00-5.40); RDW 13.3 % (11.5-14.5); WBC 8.6 10x3/uL (4.8-10.8)
[2020-11-17 13:08] LABS: CALC OSMOLALITY 279 mosm/kg (275-300); CALCIUM 9.7 mg/dL (8.5-10.1); CARBON DIOXIDE 25.9 mmol/L (21.0-32.0); CHLORIDE - SERUM 104 mmol/L (98-107); CREATININE - SERUM 0.8 mg/dL (0.6-1.3); GLUCOSE 135 mg/dL (74-106); SODIUM 140 mmol/L (136-145); UREA NITROGEN 11 mg/dL (7-18); eGFR NON AFRICAN AMERICAN 82 mL/min (90-120)
[~2020-11-18] VITALS: Ht 167.6 cm; Wt 95.3 kg
[~2020-11-18 06:00] MED LIST changes: +CARDIZEM120 MG PO; +HYDROCODON-ACE1 EAC7 PO; +Proair INH; +TOPROL XL50 MG PO; +VITAMIN D5000 UNIT PO
--- NOTE | 2020-11-18 06:57 | NUR ---
0655 PT HAS A POSITIVE LIFETIME FOR SUICIDE SCREENING. PT STATES HER SUICIDE ATTEMPTS WERE IN 2011 AND 2012 AND WAS HOSPITALIZED AT THOSE TIMES. SHE STATES SHE HAS A CARE PLAN IN PLACE WITH HER THERAPIST AND DOES NOT WANT TO BE EVALUATED BY OUR BEHAVIORAL HEALTH NURSE.
[2020-11-18 07:01] VITALS: BP 122/89; Ht 167.6 cm; Wt 95.3 kg
--- NOTE | 2020-11-18 10:45 | NUR ---
TRIAL OFF OF 02, O2 DROPPED TO 93%, REPLACED NC ON 2L 1100 TRIAL OFF OF 02, 95% RA, THEN DROPPED TO 93%, REPLACED NC ON 2L, 02 JUAN TO 94 2L 1109 DC TEACHING COMPLETE. VERBALIZED UNDERSTANDING 1145 02 STABLE ON RA AT 95%, PIV DC'D CATHETER INTACT, PATIENT UP TO VOID IN BATHROOM & DRESSED SELF 1205 DC'D VIA WC ACCOMPANIED BY RUBEN TO V WITH SIGNICANT OTHER DRIVING. PT HAS ALL BELONGINGS AND DC PACKET.
--- NOTE | 2020-11-18 12:48 | OP ---
PATIENT NAME: SHANTE MUELLER MEDICAL RECORD: [id number] :77 LOCATION:[facility] ADMISSION DATE: SURGEON: NIGEL ARMENTA MD DATE OF OPERATION: 11/18/2020 PREOPERATIVE DIAGNOSIS: Dorsal ganglion cyst, right wrist. POSTOPERATIVE DIAGNOSIS: Dorsal ganglion cyst, right wrist. PROCEDURE PERFORMED: Excision of dorsal ganglion cyst, right wrist. INDICATIONS FOR THE PROCEDURE: Ms. Mueller is a 45-year-old female with history of dorsal ganglion cyst, right wrist. It is becoming larger and more symptomatic. She has elected to proceed with surgery for surgical excision. Risks, benefits and alternatives of surgery were discussed with the patient and consent was obtained. DESCRIPTION OF THE PROCEDURE: The patient was met in the holding area where her identity and confirmation of procedure was performed. The right upper extremity was marked. She was taken to the operating room where she was placed supine on the operating table and anesthesia was administered. A tourniquet was applied to the right arm. The right arm was prepped and draped in a sterile fashion. The patient received preoperative antibiotics and timeout was performed prior to initiating the case. On initiation of the case, the arm was exsanguinated and tourniquet was raised. Total tourniquet time was 29 minutes. A transverse incision was made over the dorsal wrist near the fourth dorsal compartment. We incised through the skin and subcutaneous tissues and then dissected down to the extensor retinaculum. At this point, the cyst was identified between the third and fourth dorsal compartment. We began releasing tissue around the cyst until it was isolated to the stalk originating from the dorsal capsule. It was then transected at the stalk. There was a gelatinous clear material within the cyst. The cyst was excised and the wrist was irrigated thoroughly with saline. The dorsal capsule was then closed with 3-0 Vicryl suture. Cautery was used around the edges of the capsule. We then irrigated again with saline. The dorsal incision was infiltrated with 0.25% Marcaine with epinephrine. The deep tissues were closed with Vicryl suture and the skin was closed with Prolene. Sterile dressing was placed. The patient was placed into a volar splint, turned back over to anesthesia. She was awakened and taken to the recovery room in stable condition. POSTOPERATIVE PLAN: The patient is going to return home with her family today. She needs to remain in the splint at all times until followup. We will see her back in clinic in 2 weeks. COMPLICATIONS: None. ESTIMATED BLOOD LOSS: 5 mL. ANESTHESIA: General. TRANSINT:[id number] Voice Confirmation ID: [id number] DOCUMENT ID: [id number] OPERATIVE REPORT [id number] SHANTE MUELLER BRENT M MD at 1248 CC: [id number] DICTATION DATE: 11/18/20941 SCRAPER BURRER: 11/18/20 1102 REG [facility] [address] [place] [address]
== END 2020-11-18 12:05 | disposition home or self-care (01) ==
LOC: D.OPS 06:00
PROVIDERS: Anesthesiology; ATTEND Orthopaedic Surgery
DX: M67.431 Ganglion, right wrist (principal); M25.531 Pain in right wrist; G56.01 Carpal tunnel syndrome, right upper limb; G56.21 Lesion of ulnar nerve, right upper limb; M67.831 Other specified disorders of synovium, right wrist